=== PATIENT | female | born 1955 | race Caucasian/White ===

== ENCOUNTER 2019-08-22 15:20 | Emergency (ER) | payer BC, MEDICAID, MEDICARE ==
[2019-08-22 15:48] VITALS: BP 155/75; PULSE 58
[2019-08-22] MEDS ORDERED: Sodium Chloride 0.9% 10 ML Syringe FLUSH PRN (15:50)
[2019-08-22] MEDS ORDERED: Prochlorperazine 10 MG/2 ML SDV IVPUSH ONE (15:50)
--- NOTE | 2019-08-22 16:12 | EDM.PDOC ---
ED HPI GENERAL MEDICAL PROBLEM - General Chief Complaint: General Stated Complaint: DIZZINESS ELEVATED BP Time Seen by Provider: 08/22/19 15:45 Source of Information: Reports: Patient History Limitations: Reports: No Limitations - History of Present Illness INITIAL COMMENTS - FREE TEXT/NARRATIVE: pt presents today with acute onset dizziness about 1.5 hours ago while at home. pt states symptoms improve with keeping head still and focusing in one place and worsen with head movements and eye movements. coinciding symptoms of nausea , vomiting. pt denies fever, shortness of breath, visual changes, constant unchanging dizziness, chest pain, palpitations, weakness, speech difficulties. Onset: Today - Related Data Allergies Allergy/AdvReac Type Severity Reaction Status Date / Time No Known Allergies Allergy Verified 01/30/14 15:41 Past Medical History Neurological History: Reports: None ED ROS GENERAL - Review of Systems Review Of Systems: Comprehensive ROS is negative, except as noted in HPI. ED EXAM, GENERAL - Physical Exam Exam: See Below Exam Limited By: No Limitations General Appearance: Alert, WD/WN, No Apparent Distress Eye Exam: Bilateral Eye: EOMI, PERRL Ears: Normal External Exam Ear Exam: Bilateral Ear: Canal Normal, TM normal Nose: Normal Inspection Throat/Mouth: Normal Inspection Head: Atraumatic Neck: Normal Inspection Respiratory/Chest: No Respiratory Distress, Lungs Clear, Normal Breath Sounds, No Accessory Muscle Use Cardiovascular: Normal Peripheral Pulses, Regular Rate, Rhythm, No Edema, No Murmur Peripheral Pulses: 2+: Radial (L), Radial (R), Dorsalis Pedis (L), Dorsalis Pedis (R) Extremities: Normal Inspection, Normal Range of Motion, No Pedal Edema, Normal Capillary Refill Neurological: Alert, Oriented, CN II-XII Intact, Normal Cognition, Normal Gait, Other (symptoms remit with ) Psychiatric: Normal Affect, Normal Mood Skin Exam: Warm, Dry, Intact Lymphatic: No Adenopathy EKG INTERPRETATION EKG Date: 08/22/19 Time: 16:02 Rhythm: NSR Rate (Beats/Min): 58 Spruce: Normal P-Wave: Present QRS: Normal ST-T: Normal Course - Vital Signs Last Recorded V/S: Last Vital Signs Temp 96.8 F L 08/22/19 15:45 Pulse 58 L 08/22/19 15:45 Resp 18 08/22/19 15:45 BP 155/75 H 08/22/19 15:45 Pulse Ox 99 08/22/19 15:45 - Orders/Labs/Meds Orders: Active Orders 24 hr Category Date Time Status Blood Glucose Check, Bedside [RC] ONETIME Care 08/22/19 15:50 Active EKG Documentation Completion [RC] ASDIRECTED Care 08/22/19 15:53 Active Neuro Check [RC] Q15M Care 08/22/19 15:51 Active Pulse Oximetry [RC] CONTINUOUS Care 08/22/19 15:51 Active UA W/MICROSCOPIC [URIN] Stat Lab 08/22/19 15:50 Ordered ED Antiemetic Medication Reflex [OM.PC] Click to Edit Oth 08/22/19 15:50 Ordered Peripheral IV Insertion Adult [OM.PC] Urgent Oth 08/22/19 15:50 Ordered Labs: Laboratory Tests 08/22/19 08/22/19 Range/Units 15:50 16:30 WBC 6.4 (4.0-11.0) K/uL RBC 4.05 (3.80-5.80) M/uL Hgb 12.9 (11.5-16.5) g/dL Hct 38.1 (37.0-47.0) % MCV 94 (76-96) fL MCH 31.9 (27.0-32.0) pg MCHC 33.9 (31.0-35.0) g/dL RDW 12.8 (11.0-16.0) % Plt Count 279 (150-500) K/uL MPV 9.7 (6.0-10.0) fL Neut % (Auto) 63.5 (45.0-70.0) % Lymph % (Auto) 27.6 (20.0-40.0) % Kimble % (Auto) 6.7 (3.0-10.0) % Eos % (Auto) 1.6 (1.0-5.0) % Baso % (Auto) 0.6 H (0.0-0.5) % Neut # (Auto) 4.08 (2.00-7.50) K/uL Lymph # (Auto) 1.77 (1.50-4.00) K/uL Kimble # (Auto) 0.43 (0.20-0.80) K/uL Eos # (Auto) 0.10 (0.04-0.40) K/uL Baso # (Auto) 0.04 (0.02-0.10) K/uL Sodium 140 (136-145) mmol/L Potassium 3.8 (3.5-5.1) mmol/L Chloride 103 (98-107) mmol/L Carbon Dioxide 27.2 (21.0-32.0) mmol/L Anion Gap 13.6 (5.0-15.0) mmol/L BUN 17 (8-26) mg/dL Creatinine 0.92 (0.55-1.02) mg/dL Est Cr Clr Drug Dosing TNP Estimated GFR (MDRD) > 60 (>60) MLS/MIN BUN/Creatinine Ratio 18.5 (6-25) Glucose 113 H (74-100) mg/dL Calcium 8.7 (8.5-10.1) mg/dL Total Bilirubin 0.4 (0.0-1.0) mg/dL AST 24 (15-37) U/L ALT 33 (12-78) U/L Alkaline Phosphatase 42 L (46-116) U/L Total Protein 6.8 (6.4-8.2) g/dL Albumin 4.1 (3.4-5.0) g/dL Globulin 2.7 (2.2-4.2) g/dL Albumin/Globulin Ratio 1.5 (0.8-2.0) Meds: Medications Discontinued Medications Generic Name Dose Route Start Last Admin Trade Name Freq PRN Reason Stop Dose Admin Prochlorperazine Edisylate 5 mg 08/22/19 15:50 Compazine IVPUSH 08/22/19 15:51 ONETIME ONE Sodium Chloride 10 ml 08/22/19 15:50 Saline Flush FLUSH ASDIRECTED PRN Keep Vein Open - Re-Assessments/Exams Free Text/Narrative Re-Assessment/Exam: 08/22/19 1700 reassessment reveals improved symptoms, unsure if these were helped with tony maneuvers or beginning to resolve on their own. blood pressures also improving, currently 140 systolic. Departure - Departure Time of Disposition: 17:00 Disposition: Home, Self-Care 01 Condition: Fair Clinical Impression: BPPV (benign paroxysmal positional vertigo) - Discharge Information *PRESCRIPTION DRUG MONITORING PROGRAM REVIEWED*: Not Applicable *COPY OF PRESCRIPTION DRUG MONITORING REPORT IN PATIENT LEONARD: Not Applicable Instructions: How to Perform the Tony Maneuver Referrals: PCP,None [Primary Care Provider] - Forms: ED Department Discharge Additional Instructions: rest as able position changes to improve comfort tony maneuver at home once daily if no change in symptoms or they worsen, see your regular doctor or return to the ER for recheck as you may need more testing. Care Plan Goals: Patient discharged following assessment and plan by provider. 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 CT findings show no conclusive evidence of a a stroke and/or infarct. Hospitalist has advised that OTC meds for travel sickness, vertigo may have little effect on symptoms. If condition worsens or persist with same intensity beyond two weeks please contact your provider. If an emergency please call 911. Sepsis Event Note (ED) - Evaluation Sepsis Screening Result: No Definite Risk - Focused Exam Vital Signs: Vital Signs Temp Pulse Resp BP Pulse Ox 08/22/19 15:45 96.8 F L 58 L 18 155/75 H 99 - Problem List & Annotations (1) BPPV (benign paroxysmal positional vertigo) SNOMED Code(s): 312177722 Code(s): H81.10 - BENIGN PAROXYSMAL VERTIGO, UNSPECIFIED EAR Status: Acute Qualifiers: Laterality: left Qualified Code(s): H81.12 - Benign paroxysmal vertigo, left ear - Problem List Review Problem List Initiated/Reviewed/Updated: Yes - My Orders Last 24 Hours: My Active Orders 08/22/19 15:50 Blood Glucose Check, Bedside [RC] ONETIME UA W/MICROSCOPIC [URIN] Stat ED Antiemetic Medication Reflex [OM.PC] Click to Edit Peripheral IV Insertion Adult [OM.PC] Urgent 08/22/19 15:51 Neuro Check [RC] Q15M Pulse Oximetry [RC] CONTINUOUS 08/22/19 15:53 EKG Documentation Completion [RC] ASDIRECTED - Assessment/Plan Last 24 Hours: My Active Orders 08/22/19 15:50 Blood Glucose Check, Bedside [RC] ONETIME UA W/MICROSCOPIC [URIN] Stat ED Antiemetic Medication Reflex [OM.PC] Click to Edit Peripheral IV Insertion Adult [OM.PC] Urgent 08/22/19 15:51 Neuro Check [RC] Q15M Pulse Oximetry [RC] CONTINUOUS 08/22/19 15:53 EKG Documentation Completion [RC] ASDIRECTED Assessment:: BPPV Plan: d/c home with tony maneuver instructions to use QD if not better in 1 week: follow up in PCP clinic or ER if symptoms worsen, return to ER rest when able and reduce eye movements and head turning when able.
--- NOTE | 2019-08-22 17:33 | CT ---
DATE OF SERVICE: 08/22/2019 CLINICAL DATA: Vertigo Unenhanced brain CT: Multislice acquisition through the brain without IV contrast was performed. No priors. There is mild atrophy. There are periventricular lucencies bilaterally consistent with small vessel ischemic change. No masses or mass effect. No intracranial hemorrhage. No evidence of acute or subacute infarct. No osseous abnormalities. Impression: No acute intracranial abnormalities. MTDD
== END 2019-08-22 17:12 | disposition home or self-care (01) ==
LOC: LB.ED 15:20
DX: H81.12 Benign paroxysmal vertigo, left ear (principal)
CPT/HCPCS: 36415; 70450; 80053; 85025; 93005; 96374; 99284; J0780